=== PATIENT | male | born 1960 | race African-American/Black ===

== ENCOUNTER 2020-07-22 04:31 | Day surgery (SDC) | payer OTHER ==
[2020-07-19 12:00] VITALS: BMI 33.0
[2020-07-22] MEDS ORDERED: MIDAZOLAM HCL 2 MG/2 ML SINGLE DOSE VIAL ONE (12:29)
[2020-07-22 13:39] VITALS: BP 140/80; PULSE 90; TEMP 97.8
[2020-07-22] MEDS ORDERED: ACETAMINOPHEN 325 MG TABLET (FP) ONE (13:41)
[2020-07-22] MEDS ORDERED: ACETAMINOPHEN 325 MG TABLET (FP) PO ONE (13:44)
--- NOTE | 2020-07-22 14:06 | OP ---
Operative Note - Note: Operative Date: 07/22/20 Pre-Operative Diagnosis: Left renal stone Operation: Left ESWL Findings: 5 mm mid pole Left renal stone Post-Operative Diagnosis: Same as Pre-op Surgeon: Robert Ramírez Anesthesia: Regional Estimated Blood Loss (mls): 0 Operative Report Dictated: Yes
--- NOTE | 2020-07-22 18:58 | OP ---
DATE OF OPERATION: 07/22/2020 PREOPERATIVE DIAGNOSIS: Left renal stone. POSTOPERATIVE DIAGNOSIS: Left renal stone. PROCEDURE: Left extracorporeal shockwave lithotripsy. ATTENDING: Calvin Ramírez M.D. ANESTHESIA: Fractional. DESCRIPTION OF PROCEDURE: Patient was brought in the operating room, placed in a supine position on the operating room table. Ultrasonography and fluoroscopy were performed. A left-sided, 5-mm mid pole stone was identified. Anesthesia and preoperative antibiotics were then administered. Shockwave lithotripsy was then started. 2500 impulses at 17 joules of power were administered to the stone with realtime ultrasonography and fluoroscopy. No complications were noted. The patient tolerated the procedure very well. CALVIN COMBS M.D. [id number]
== END 2020-07-22 14:00 | disposition home or self-care (01) ==
LOC: JASU-SURG 04:31
PROVIDERS: ATTEND Urology
PROC: 0TF4XZZ Fragmentation in Left Kidney Pelvis, External Approach (ICD-10-PCS; principal; 2020-07-22 12:00)
DX: N20.0 Calculus of kidney (principal)